=== PATIENT | female | born 2000 | race Caucasian/White ===

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

== ENCOUNTER 2025-02-15 11:15 | Observation (INO) | payer OTHER ==
[~2025-02-15] VITALS: Ht 167.6 cm; Wt 70.3 kg
[2025-02-15 11:56] VITALS: BP 134/94
[2025-02-15] MEDS ORDERED: VITAMIN D5000 UNIT PO ×2 (12:18)
[2025-02-15 12:34] LABS: BASOPHILS ABSOLUTE AUTO 0.05 K/mm3 (0.00-0.23); BASOPHILS PERCENT AUTO 1 % (0-2); EOSINOPHILS ABSOLUTE AUTO 0.06 K/mm3 (0.00-0.68); EOSINOPHILS PERCENT AUTO 1 % (0-6); Hematocrit 41.2 % (33.0-51.0); Hemoglobin 13.8 g/dL (11.5-16.0); IMMATURE GRAN ABSOLUTE AUTO 0.03 K/mm3 (0.00-0.10); IMMATURE GRAN PERCENT AUTO 0 % (0-1); LYMPHOCYTES ABSOLUTE AUTO 2.52 K/mm3 (0.84-5.20); LYMPHOCYTES PERCENT AUTO 24 % (21-46); MONOCYTES PERCENT AUTO 7 % (4-13); Mean Corpuscular HGB 31.2 pg (26.0-34.0); Mean Corpuscular HGB Conc 33.5 g/dL (31.5-36.5); Mean Corpuscular Volume 93 fL (80-100); Mean Platelet Volume 11.5 fL (9.1-12.4); NEUTROPHILS ABSOLUTE AUTO 7.19 K/mm3 (1.96-9.15); NEUTROPHILS PERCENT AUTO 68 % (41-73); Platelet Count 256 K/mm3 (150-400); RDW Coefficient Variation 14.3 % (11.7-14.2); RDW Standard Deviation 49.3 fL (35.1-46.3); Red Blood Cell Count 4.43 M/mm3 (3.80-5.20); White Blood Cell Count 10.55 K/mm3 (4.00-11.30)
[2025-02-15 12:53] LABS: Beta HCG, Quantitative, Serum <1 mIU/mL (0-3); Ethanol (Alcohol), Blood, Med <3 mg/dL; Salicylate 2.3 mg/dL (2.8-20.0)
[2025-02-15 13:02] LABS: Alanine Aminotransfer (ALT/SGP 22 U/L (12-78); Albumin, Blood 4.3 g/dL (3.4-5.0); Albumin/Globulin Ratio 1.3 (0.8-1.8); Alk Phos 75 U/L (50-136); Anion Gap 7 mmol/L (3-11); Aspartate Aminotrans (AST/SGOT 14 U/L (12-37); Bilirubin, Total 0.5 mg/dL (0.1-1.0); Blood Urea Nitrogen 7 mg/dL (8-24); Bun/Creatinine Ratio 10.5 (12.0-20.0); CO2, Blood 27 mmol/L (21-32); Chloride, Blood 111 mmol/L (98-108); Creatinine, Blood 0.67 mg/dL (0.40-1.00); Globulin, Blood 3.4 g/dL (2.2-4.0); Glomerular Filtration Rate 127 (60-); Glucose, Blood 93 mg/dL (70-99); Potassium, Blood 3.6 mmol/L (3.5-5.5); Sodium, Blood 141 mmol/L (136-145); Total Protein, Blood 7.7 g/dL (6.4-8.2)
[2025-02-15 13:03] LABS: Acetaminophen, Random <2.0 ug/mL (10.0-30.0)
[2025-02-15 13:50] LABS: Source, Urine Clean Catch
[2025-02-15 13:57] LABS: Appearance, Urine Clear (Clear); Bilirubin, Urine Neg (Neg); Blood, Urine Neg (Neg); Color, Urine Yellow (P-Yellow); Glucose Qualitative, Urine Neg (Neg); Ketones, Urine Neg (Neg); Leukocyte Esterase, Urine 1+ (Neg); Nitrite, Urine Neg (Neg); Protein, Urine 2+ (Neg); Urobilinogen, Urine NORM (Normal)
[2025-02-15 14:14] LABS: Bacteria Many /hpf; Mucus Mod (0-Heavy); Red Blood Cells, Urine 0-2 /hpf (0-2); Squamous Epithelial Cells Mod /hpf (Few); U Amphetamine Screen Not Detected; U Barbituate Screen Not Detected; U Benzodiazapine Screen Not Detected; U Buprenorphine Screen Not Detected; U Cannabinoids Screen DETECTED; U Cocaine Screen Not Detected; U Methadone Screen Not Detected; U Methamphetamine Screen Not Detected; U Opiates Screen Not Detected; U Oxycodone Screen Not Detected; U Phencyclidine Screen Not Detected
== END 2025-02-15 17:00 | disposition other institution (70) ==
LOC: ER 11:15 → EOR 11:16 → EDBEDREQ 15:03 → EDBEDREQSVC 15:03 → EDBEDREQTM 15:03 → EOR 17:00
PROVIDERS: Student in an Organized Health Care Education/Training Program; ADMIT Emergency Medicine
DX: F33.2 Major depressive disorder, recurrent severe without psychotic features (principal); R45.851 Suicidal ideations; F43.25 Adjustment disorder with mixed disturbance of emotions and conduct; F17.200 Nicotine dependence, unspecified, uncomplicated
CPT/HCPCS: 80053; 80320; 81001; 84702; 85025; 87086; 99285; G0378; G0480

== ENCOUNTER 2025-02-15 15:31 | Inpatient (IN) | payer OTHER ==
[~2025-02-15] VITALS: Ht 167.6 cm; Wt 67.0 kg
[~2025-02-15 15:31] MED LIST changes: +VITAMIN D5000 UNIT PO
[2025-02-15] MEDS ORDERED: Ondansetron 4 MG SoluTab MM PRN (17:55)
[2025-02-15] MEDS ORDERED: LORazepam 2 MG Tab PO PRN (17:55)
[2025-02-15] MEDS ORDERED: LORazepam 2 MG/ML 1ML Injection IM PRN (17:55)
[2025-02-15] MEDS ORDERED: TraZODone HCl 50 MG Tab PO PRN (17:55)
[2025-02-15] MEDS ORDERED: OLANZapine ODT 10 MG Tab MM PRN (17:55)
[2025-02-15] MEDS ORDERED: Polyethylene Glycol 3350 17 gm PO PRN (17:55)
[2025-02-15] MEDS ORDERED: Ibuprofen 600 MG Tab PO PRN (18:00)
[2025-02-15] MEDS ORDERED: Melatonin 3 MG Tab PO PRN (18:00)
[2025-02-15] MEDS ORDERED: DiphenhydrAMINE HCl 50 MG Cap PO PRN (18:00)
[2025-02-15] MEDS ORDERED: DiphenhydrAMINE HCl 50 MG/ML 1ML Vial IM PRN (18:00)
[2025-02-15] MEDS ORDERED: Haloperidol Lactate Inj. 5 MG/ML Injection IM PRN (18:00)
[2025-02-15] MEDS ORDERED: Calcium Carbonate 500 MG Tab Chew PO PRN (18:00)
[2025-02-15] MEDS ORDERED: Acetaminophen 325 MG TABLET PO PRN (18:00)
[2025-02-15] MEDS ORDERED: Aluminum Hydroxide 320MG/5ML 473 ML PO PRN (18:00)
[2025-02-15] MEDS ORDERED: HydrOXYzine Pamoate 50 MG Cap PO PRN (18:05)
[2025-02-15] MEDS ORDERED: Haloperidol 5 MG Tab PO PRN (18:05)
--- NOTE | 2025-02-15 19:05 | NUR ---
ADMISSION SUMMARY PT ADMITTED FROM ED AND ACCOMPANIED TO [facility] BY PATRICIA CHEEMA. PT CHANGED INTO UNIT SCRUBS AND 2 RN SKIN CHECK CONDUCTED WITH NORBERTO ARMSTRONG. PT HAS MULTIPLE SCARS AND SCRATCHES TO BILATERAL FOREARMS. PT REPORTS THAT SHE CUTS HERSELF. SCRATCHES ARE SUPERFICIAL AND SCABBED. SOME SCATTERED BRUISING NOTED TO BILATERAL LOWER LEGS. PT ORIENTED TO THE UNIT AND PROVIDED WITH MEAL TRAY. PT ATE DINNER DURING INTAKE ASSESSMENT. PT CAME TO THE HOSPITAL AFTER ATTEMPTING SUICIDE BY JUMPING OFF A ALEJANDRA. PT REPORTS THAT HER FIANCE RECENTLY BROKE UP WITH HER AND SHE WAS WORRIED SHE MAY BE . TEST FROM ED NEGATIVE. URINE CULTURE FOR UTI FROM ED PENDING. PT REPORTS THAT SHE WAS UNABLE TO CARRY OUT HER PLAN BECAUSE OF SNOW BLOCKING THE HIKING TRAIL SO SHE CAME BACK TO TOWN AND DECIDED TO SEEK HELP. PT REPORTS MULTIPLE PEOPLE IN HER FAMILY WITH SUICIDE ATTEMPTS BUT NONE SUCCESSFUL. SHE HAS A HX OF OTHER ATTEMPS, BUT NONE SINCE SHE WAS 15. SHE DENIES CURRENT SI, HI, OR HALLUCINATIONS. SHE REPORTS EXPERIENCING SOME HALLUCINATIONS THIS MONTH DUE TO CHRONIC SLEEP DEPRIVATION. PT REPORTS RECENTLY SEEING A SLEEP DOCTOR FOR HER INSOMNIA. PT ORIENTED TO UNIT AND ASKED TO AVOID SELF HARM BEHAVIORS AND TO SEEK HELP IF SHE FEELS THE NEED TO HURT HERSELF. PT IN HER ROOM AT TIME OF NOTE AND IS ROUNDED ON Q15 FOR SAFETY AND WELLNESS.
[2025-02-15 19:33] VITALS: BP 120/91
[2025-02-15] MEDS ORDERED: Nicotine Polacrilex 2 MG Gum PO PRN (19:45)
--- NOTE | 2025-02-16 04:26 | NUR ---
SHIFT SUMMARY: PATIENT WAS IN HER ROOM AT THE BEGINNING OF THE SHIFT. SHE DECLINED OFFERS TO COME AND WATCH A MOVIE OR DO A PUZZLE WITH FEMALE MHA. SHE DID PARTICIPATE IN SNACK AND WRAP UP GROUP AT 1999, ALTHOUGH SHE SAT ALONE IN A CORNER SEAT. SHE PRESENTED WITH A SHY/WITHDRAWN AFFECT. SHE STATED, "I WANT TO GO HOME NOW". SHE AGREED TO WAIT UNTIL SHE SEES THE DOCTOR ON MONDAY TO ASK ABOUT GOING HOME. SHE WAS COMPLIANT WITH EVENING MEDICATIONS. SHE DENIED SUICIDAL IDEATION OR THOUGHTS OF SELF HARMING THIS SHIFT. SHE VERBALIZED UNDERSTANDING THAT SHE CAN TALK TO ANY STAFF IF SHE STARTS TO FEEL SCARED OR LIKE HARMING HERSELF.AFTER SNACK, SHE WENT TO BED AND WAS NOTED TO BE RESTING QUIETLY WITH EYES CLOSED AND RESPIRATIONS CONFIRMED FOR THE REMAINDER OF THE SHIFT. CONTINUING TO MONITOR FOR SAFETY WITH Q15 MINUTE CHECKS.
[2025-02-16] MEDS ORDERED: Multivitamins 1 Tab PO SCH (09:00)
[2025-02-16 12:27] VITALS: BP 120/73
--- NOTE | 2025-02-16 17:20 | NUR ---
SHIFT SUMMARY PT WOKE WHEN BREAKFAST WAS CALLED, SHE DID NOT ATTEND. SHE HAS STAYED IN HER ROOM MOST ALL SHIFT. SHE CAME OUT ONCE AND WALKED THE HALLWAY. DIDN'T EAT LUNCH EITHER. SHE STATES NOT BEING COMFORTABLE EATING IN FRONT OF OTHERS. SHE DID ATTEND HER DINNER MEAL. SHE ASKED TO GO HOME, STS SHE FEELS FINE NOW HOWEVER PROVIDER DENIED IT. PT'S MOTHER ARRIVED AT THE DOOR APPROX AT 1300, UNKNOWN SHE NEEDED TO HAVE AN APPT. MOM WAS ALLOWED TO COME IN A FRIEND DROPPED HER OFF. MOM WAS INFORMED OF VISIT TIMES AND PROCESS. AFTER HER VISIT, SHE WENT OVER THE MAIN HOSPITAL AND SPOKE TO HOSPITAL RECOVERY COACH. VITA MONDRAGON, CALLED HERE. THIS RN EXPLAINED THE PROCESS. MOM WAS UPSET THAT THE PT WAS VOLUNTARY AND COULDN'T LEAVE. ER STAFF TOLD HER SHE COULD LEAVE AT ANYTIME. MOM UNDERSTANDS THE VOLUNTARY VS HOLD SITUATION NOW. PROVIDED PT WITH HEAD PHONES FOR MUSIC, SHE DENIES SI/HI/AVH. PT HAS HAD CONTINUOUS Q15 SAFETY CHECKS THROUGH THE SHIFT
[2025-02-16 19:58] VITALS: BP 121/82
--- NOTE | 2025-02-17 04:21 | NUR ---
SHIFT SUMMARY PATIENT RESTING QUIETLY IN ROOM. VERBALIZED THAT SHE HAD A GOOD VISIT WITH FAMILY TODAY AND IS LOOKING FORWARD TO VISITING WITH THEM AGAIN. C/O PAIN TO RIGHT SHOULDER 6/10 GOOD RELIEF WITH STRETCHING AND TYLENOL. DENIES SI, HI, OR AVH. VERBALIZED THAT SHE HAD HALLUCINATIONS IN THE PAST WHEN SLEEP DEPRIVED. PATIENT HAS DIFFICULTY SWALLOWING PILLS, HS MEDICATIONS GIVEN WITH PUDDING WHICH APPEARED TO HELP. PATIENT APPEARS TO BE SLEEPING WELL T/O NIGHT RESP EVEN AND UNLABORED. CONTINUE TO MONITOR Q15MIN
--- NOTE | 2025-02-17 06:28 | NUR ---
PATIENT AWAKE VERBALIZED SHE HAD SEVERAL NIGHTMARES T/O NIGHT. DENIES NEED FOR ANXIETY MEDICATION AT THIS TIME. PATIENT VERBALIZED THAT SHE HAS NIGHTMARES FREQUENTLY AT HOME.
--- NOTE | 2025-02-17 08:14 | NUR ---
PT EXPRESSES FEELING "MUCH BETTER" THIS AM. STATES SHE HASN'T HAD GOOD SLEEP FOR WEEKS AND FINALLY FEELS CAUGHT UP WHICH HAS CHANGED HER MENTAL STATUS. SHE STATES SHE PLANS TO MOVE IN WITH MOTHER AFTER DISCHARGE AND A FRIEND IS HELPING HER FIND A NEW JOB. 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
[2025-02-17 08:31] VITALS: BP 118/71
[2025-02-17] MEDS ORDERED: Cholecalciferol 1000 Unit Tablet (=25MCG) PO SCH (09:00)
--- NOTE | 2025-02-17 18:01 | NUR ---
SHIFT SUMMARY: PT ALERT, ORIENTED AND COOPERATIVE. PT ATTENDED MEALS, GROUPS AND SNACK. PRESENT ON THE UNIT IN THE EVENING WATCHING TV AND TALKING WITH PEERS. PT MOTHER CAME TO VISIT AND THE VISIT APPEARED TO GO WELL.
[2025-02-17 20:00] VITALS: BP 111/77
[2025-02-17] MEDS ORDERED: BusPIRone HCl 5 MG Tab PO SCH (21:00)
--- NOTE | 2025-02-18 04:25 | NUR ---
SHIFT SUMMARY: Patient awake at 0230 stated she felt she has slept intermittantly at best. Stated nightmares a little less than usual for such a sleepless night. Vistaril given with apparent good relief. Encouraged patient to let staff know when we round as soon as she is starting to have difficulty sleeping, and we can help her get a more balanced rest. No SI,HI or AVH noted on evening assessment. Will continue close monitoring every 15 minutes for safety and comfort
[2025-02-18 07:58] VITALS: BP 104/61
--- NOTE | 2025-02-18 08:33 | NUR ---
PT REPORTS HER MOOD IS GOOD, DENIES ANY SI/HI DENIES AH/VH/TH, PT STATES SHE IS EXCITED AND ANXIOUS SHE WOULD LIKE DISCHARGE. SHE REPORTS SHE PLANS ON MOVING BACK HOME WITH HER MOTHER AND TAKING THE NEXT WEEK OFF OF WORK, SHE STATES SHE HAS REVISITED COPING SKILLS SHE HAS LEARNED IN THE PAST AND THAT THEY HAVE BEEN GOOD REFRESHERS. SHE IS MAKING GOALS AND STATES, "YEAH I'M NOT READY TO LEAVE THIS WORLD YET."
[2025-02-18] MEDS ORDERED: SERT50 PO ×2 (09:04)
[2025-02-18] MEDS ORDERED: BUSP5 PO ×2 (09:48)
--- NOTE | 2025-02-18 10:47 | NUR ---
IMPORTANT HOSPITAL DISCHARGE APPOINTMENT INFORMATION Patient is scheduled to meet with Patricia Cardona MD for hospital discharge appointment on January at 1450 // [address], [place] [address] // [phone] Behavioral health referral requested per [facility] Transitions of Motor Vehicles Supervisor PERICO entered appointment information into patient's discharge packet
== END 2025-02-18 12:22 | disposition home or self-care (01) | DRG 885 ==
LOC: BHU 15:31
PROVIDERS: ADMIT Psychiatry & Neurology Psychiatry
DX: F33.2 Major depressive disorder, recurrent severe without psychotic features (principal); F43.25 Adjustment disorder with mixed disturbance of emotions and conduct; F17.210 Nicotine dependence, cigarettes, uncomplicated; F12.90 Cannabis use, unspecified, uncomplicated; F41.9 Anxiety disorder, unspecified; Z87.440 Personal history of urinary (tract) infections; Z88.2 Allergy status to sulfonamides; Z79.899 Other long term (current) drug therapy; Z79.1 Long term (current) use of non-steroidal anti-inflammatories (NSAID)
CPT/HCPCS: A9270

== ENCOUNTER → 2025-05-26 | Outpatient (CLI) | payer OTHER ==
[~2025-05-26] MED LIST changes: +BUSP5 PO; +SERT50 PO
[2025-05-29 04:40] LABS: HSV SUBTYPE SOURCE MOUTH
== END | disposition home or self-care (01) ==
LOC: LAB 15:13 → LAB SHORT 15:13
PROVIDERS: Physician Assistant Medical
DX: K13.79 Other lesions of oral mucosa (principal)
CPT/HCPCS: 87529

== ENCOUNTER 2025-06-19 12:00 | Emergency (ER) | payer OTHER ==
[~2025-06-19] VITALS: Ht 172.7 cm; Wt 72.6 kg
[2025-06-19 12:04] VITALS: BP 152/92
== END 2025-06-19 13:41 | disposition home or self-care (01) ==
LOC: ER 12:00
DX: F41.9 Anxiety disorder, unspecified (principal); F17.200 Nicotine dependence, unspecified, uncomplicated; Z88.2 Allergy status to sulfonamides; Z79.899 Other long term (current) drug therapy; Z59.89 Other problems related to housing and economic circumstances
CPT/HCPCS: 93005; 93010; 99283-25; A9270